=== PATIENT | female | born 1950 | race Caucasian/White ===

== ENCOUNTER 2017-09-05 00:35 | Observation (INO) | payer MEDICARE, OTHER ==
[2017-09-05 00:45] VITALS: RESP 18
--- NOTE | 2017-09-05 02:32 | ED ---
Chest Pain HPI - General Chief Complaint: Chest Pain Stated Complaint: chest pain Time Seen by Provider: 09/05/17 00:41 Source: patient, EMS Mode of arrival: EMS Limitations: no limitations - History of Present Illness Initial Comments: 67 years old female transferred from [facility] with the chest pain , she had a brief episodes of chest pain 6 times today she has no prior history of chest pain or no prior history of coronary artery disease now she was seen at the [facility] they did the basic blood work including troponin and some EKG those were unremarkable considering her age they wanted her to be come to the [facility] for further evaluation by cardiology. She does have a history of firm, hypertension, thyroid disease and seizure disorder she has not been taking the medications and she has been now seizure-free for the last 2 years on arrival she has no headaches no neck stiffness no chest pain or shortness of breath no abdominal pain no frequency urgency dysuria no symptoms of TIA or CVA - Related Data Allergies Allergy/AdvReac Type Severity Reaction Status Date / Time No Known Allergies Allergy Verified 09/05/17 00:45 Review of Systems ROS Statement: Those systems with pertinent positive or pertinent negative responses have been documented in the HPI. ROS Other: All systems not noted in ROS Statement are negative. EKG Findings - EKG Comments: EKG Findings:: EKG is normal sinus rhythm ventricular rate is 66 MS interval is 150 QRS duration is 78 QT/QTc is 2/463 review of this EKG does not reveal any ST elevation or ST depression Past Medical History Past Medical History: Hypertension, Seizure Disorder Additional Past Medical History / Comment(s): hypothyroidism History of Any Multi-Drug Resistant Organisms: None Reported Past Surgical History: No Surgical Hx Reported Past Psychological History: No Psychological Hx Reported Smoking Status: Never smoker Past Alcohol Use History: Occasional Past Drug Use History: Marijuana General Exam - General Exam Comments Initial Comments: General: The patient is awake and alert, in no distress, and does not appear acutely ill. Skin: Skin is warm and dry and no rashes or lesions are noted. Eye: Pupils are equal, round and reactive to light, extra-ocular movements are intact; there is normal conjunctiva bilaterally. Ears, nose, mouth and throat: There are moist mucous membranes and no oral lesions. Neck: The neck is supple, there is no tenderness or JVD. Cardiovascular: There is a regular rate and rhythm. No murmur, rub or gallop is appreciated. Respiratory: To auscultation bilateral, no wheezing no rhonchi no distress respiratory chin noticed Gastrointestinal: Soft, non-distended, non-tender abdomen without masses or organomegaly noted. There is no rebound or guarding present. Bowel sounds are unremarkable. Back: There is no tenderness to palpation in the midline. There is no obvious deformity. Musculoskeletal: Normal ROM, no tenderness, There is no pedal edema. There is no calf tenderness or swelling. No cords were appreciated. Neurological: CN II-XII intact, Cranial nerves III through XII are intact. There are no obvious motor or sensory deficits. Coordination appears grossly intact. Speech is normal. Psychiatric: Cooperative, appropriate mood & affect, normal judgment. Limitations: no limitations Course Vital Signs 09/05/17 09/05/17 00:38 02:30 Temperature 97.5 F L Pulse Rate 68 72 Respiratory 18 18 Rate Blood Pressure 167/81 167/79 O2 Sat by Pulse 97 95 Oximetry l she is chest pain-free, all the labs done at [facility] were reviewed there found unremarkable, deviated troponin along with EKG and both are unremarkable spoke with the Dr. Lavell Dorantes is the manager infusion doctor she be admitted to the Dr. Lavell Dorantes's service with a cardiology consult Disposition Clinical Impression: Chest pain Disposition: ADMITTED IP TO THIS HOSP Condition: Good Referrals: None,Stated [Primary Care Provider] - 1-2 days
[2017-09-05] MEDS ORDERED: NITROGLYCERIN SL TABS 0.4 MG TAB SUBLINGUAL PRN (02:36)
[2017-09-05 03:17] VITALS: BMI 30.9
[2017-09-05] MEDS ORDERED: ACETAMINOPHEN TAB 325 MG TAB PO PRN (03:24)
--- NOTE | 2017-09-05 07:46 | HP ---
HISTORY AND PHYSICAL CHIEF COMPLAINT: A 67-year-old female transferred from [facility] for chest pain, brief episode 6 times yesterday. No prior history of chest pain or heart disease. She wanted to come to [facility] to see a political worker. She has a history of hypertension, thyroid disease, seizure disorder, not taking medications, seizure-free for 2 years. No neck stiffness. No signs of seizure or TIA. ALLERGIES: Allergies are negative. REVIEW OF SYSTEM: Fourteen-point review of systems negative except for mentioned in HPI. EKG sinus rhythm. PAST MEDICAL HISTORY: Hypertension, seizure disorder, hypothyroidism. SOCIAL HISTORY: No smoker. Did use marijuana. PHYSICAL EXAM: Vital signs are stable, afebrile. CARDIOVASCULAR: S1, S2. LUNGS: Clear. GI: Soft. HEMATOLOGY: Negative Homans. PSYCH: Fair mood and affect. NEUROLOGIC: Alert and oriented x3. Cranial nerves are intact. OPHTHALMOLOGIC: Pupils equal, round, reactive to light and accommodation. Temp 97.5, pulse 68 to 72, respiratory rate 16 to 18, blood pressure 160s over 79 to 81, O2 of 95% to 97%. ASSESSMENT: 1. Atypical chest pain. 2. Hypertension. We will get Cardiology to see the patient and rule out for myocardial infarction. So far labs showed negative troponin. Cardiology is consulted. She remains on Lipitor 40 daily, Zestril 10 mg daily, aspirin 325 daily. We will do a D-dimer and check thyroid levels, etc. Please see further orders. MMODL / IJN: [id number] /
[2017-09-05 07:52] LABS: Creatine Kinase 101 U/L (30-135)
[2017-09-05 08:05] LABS: Creatine Kinase MB 1.4 ng/mL (0.0-2.4); Troponin I <0.012 ng/mL (0.000-0.034)
[2017-09-05 08:16] VITALS: TEMP 97.7
[2017-09-05 08:44] LABS: T4, Free (Free Thyroxine) 0.74 ng/dL (0.78-2.19)
[2017-09-05] MEDS ORDERED: LISINOPRIL 10 MG TAB PO SCH (09:00)
--- NOTE | 2017-09-05 09:25 | ECHOF ---
Referral Reason: MEASUREMENTS -------- HEIGHT: 175.3 cm WEIGHT: 94.8 kg BP: 148/87 RVIDd: 2.8 cm (< 3.3) IVSd: 1.2 cm (0.6 - 1.1) LVIDd: 3.9 cm (3.9 - 5.3) LVPWd: 1.2 cm (0.6 - 1.1) IVSs: 1.7 cm LVIDs: 2.5 cm LVPWs: 1.4 cm LA Diam: 3.4 cm (2.7 - 3.8) LAESV Index (A-L): 24.38 ml/m Ao Diam: 2.9 cm (2.0 - 3.7) AV Cusp: 1.9 cm (1.5 - 2.6) MV EXCURSION: 19.523 mm (> 18.000) MV EF SLOPE: 169 mm/s (70 - 150) EPSS: 0.1 cm MV E Dre: 0.87 m/s MV DecT: 237 ms MV A Dre: 0.96 m/s MV E/A Ratio: 0.90 RAP: 5.00 mmHg RVSP: 28.81 mmHg FINDINGS -------- Sinus rhythm. This was a technically good study. The left ventricular size is normal. There is borderline concentric left ventricular hypertrophy. Overall left ventricular systolic function is normal with, an EF between 55 - 60 %. The right ventricle is normal in size. Normal LA size by volume 22+/-6 ml/m2. The right atrium is normal in size. The aortic valve is trileaflet and appears structurally normal. There is trace mitral regurgitation. Mild tricuspid regurgitation present. Right ventricular systolic pressure is normal at < 35 mmHg. There is no pulmonic regurgitation present. The aortic root size is normal. Normal inferior vena cava with normal inspiratory collapse consistent with estimated right atrial pre ssure of 5 mmHg. There is no pericardial effusion. CONCLUSIONS -------- 1. Sinus rhythm. 2. This was a technically good study. 3. The left ventricular size is normal. 4. There is borderline concentric left ventricular hypertrophy. 5. Overall left ventricular systolic function is normal with, an EF between 55 - 60 %. 6. The right ventricle is normal in size. 7. Normal LA size by volume 22+/-6 ml/m2. 8. The right atrium is normal in size. 9. The aortic valve is trileaflet and appears structurally normal. 10. There is trace mitral regurgitation. 11. Mild tricuspid regurgitation present. 12. Right ventricular systolic pressure is normal at < 35 mmHg. 13. There is no pulmonic regurgitation present. 14. The aortic root size is normal. 15. Normal inferior vena cava with normal inspiratory collapse consistent with estimated right atrial pressure of 5 mmHg. 16. There is no pericardial effusion. PRODUCT MARKETING SPECIALIST: Shantel Nielsen RDCS
--- NOTE | 2017-09-05 11:07 | ECHOS ---
STRESS ECHOCARDIOGRAM DATE OF SERVICE: 09/05/2017 INDICATIONS: Chest pain. MEDICATIONS: BASELINE HEART RATE: 66 BASELINE BLOOD PRESSURE: 136/81 MAXIMUM HEART RATE: 134 MAXIMUM BLOOD PRESSURE: 183/82 85% MPHR: 130 100% MPHR: 153 METS: 5 MAXIMUM STAGE REACHED: I TOTAL EXERCISE TIME: 3 minutes and 40 seconds. CLINICAL INFORMATION: Baseline EKG shows sinus rhythm, normal axis, normal intervals. Patient exercised on Hu protocol for a total of 3 minutes and 40 seconds, achieving 5 METs, 87% of predicted maximal heart rate without chest pain or diagnostic ST-segment depression. Baseline echo shows normal left ventricular size, wall motion and systolic function. Postexercise, there is normal hyperdynamic response of all segments of myocardium noted. CONCLUSIONS: 1. Poor exercise tolerance. 2. Negative stress test by EKG criteria. 3. Negative stress echo. DOMENICA / JOSEN: [id number] /
[2017-09-05 11:43] VITALS: BP 120/78; PULSE 82
--- NOTE | 2017-09-05 11:47 | P.CRDCN ---
History of Present Illness Consult date: 09/05/17 History of present illness: Mrs. Carlos is a pleasant 67-year-old female past medical history of hypertension, hypothyroidism, seizure disorder and regular marijuana use. She is non compliant with medications and has not really followed with a dr in the last couple years. She denies history of coronary artery disease and has never seen a defect cutter for any reason. We have been asked to see her in consultation for chest pain. She states yesterday while a the library she was bending down to get a book and developed a heavy pain in the left precordial region with associated nausea. She sat down and the pain went away. No radiation , sob, palpitations, vomiting, diaphoresis or dizziness. The discomfort lasted a minute or so each time. It happened again 3 times before presenting to the hospital. The pain is reproducible on palpation. She does recall lifting a heavy mirror this week and had to put it down because was too heavy. She initially presented to [facility] and was transferred here for cardiac evaluation. EKG reveals sinus mechanism with no acute ST or T-wave abnormalities. Telemetry tracings have been unremarkable. Laboratory data reviewed from [facility]. Cardiac enzymes negative x3. She takes no daily medications other than vitamins. Review of Systems At the time my exam: CONSTITUTIONAL: Denies fever. Denies chills. EYES: Denies blurred vision. Denies vision changes. Denies eye pain. EARS, NOSE, MOUTH & THROAT: Denies headache. Denies sore throat. Denies ear pain. CARDIOVASCULAR: Denies chest pain. Denies shortness of breath. Denies orthopnea. Denies PND. Denies palpitations. RESPIRATORY: Denies cough. GASTROINTESTINAL: Denies abdominal pain. Denies diarrhea. Denies constipation. Denies nausea. Denies vomiting. MUSCULOSKELETAL: Denies myalgias. INTEGUMENTARY: Denies pruitis. Denies rash. NEUROLOGIC: Denies numbness. Denies tingling. Denies weakness. PSYCHIATRIC: Denies anxiety. Denies depression. ENDOCRINE: Denies fatigue. Denies weight change. Denies polydipsia. Denies polyurina. GENITOURINARY: Denies burning, hematuria or urgency with micturation. HEMATOLOGIC: Denies history of anemia. Denies bleeding. Past Medical History Past Medical History: Hypertension, Seizure Disorder Additional Past Medical History / Comment(s): hypothyroidism History of Any Multi-Drug Resistant Organisms: None Reported Past Surgical History: Hysterectomy Additional Past Surgical History / Comment(s): fibroid tumer Past Anesthesia/Blood Transfusion Reactions: No Reported Reaction Smoking Status: Never smoker - Past Family History Mother Family Medical History: Cancer Additional Family Medical History / Comment(s): Breast CA Father Additional Family Medical History / Comment(s): ETOH, Cirrosis Medications and Allergies Home Medications Medication Instructions Recorded Confirmed Type Calcium Carbonate [Calcium] 600 mg PO DAILY 09/05/17 09/05/17 History Cholecalciferol [Vitamin D3] 1,000 unit PO DAILY 09/05/17 09/05/17 History Cyanocobalamin (Vitamin B-12) 1,000 mcg PO DAILY 09/05/17 09/05/17 History [Vitamin B-12] Magnesium 200 mg PO DAILY 09/05/17 09/05/17 History Vitamin B Complex 1 cap PO DAILY 09/05/17 09/05/17 History Zinc 50 mg PO DAILY 09/05/17 09/05/17 History Allergies Allergy/AdvReac Type Severity Reaction Status Date / Time No Known Allergies Allergy Verified 09/05/17 09:01 Physical Exam Vitals: Vital Signs Temp Pulse Pulse Resp BP BP Pulse Ox 09/05/17 03:25 97.5 F L 64 18 148/87 96 09/05/17 02:51 97.9 F 09/05/17 02:30 72 18 167/79 95 09/05/17 00:38 97.5 F L 68 18 167/81 97 Intake and Output 09/04/17 09/05/17 09/05/17 22:59 06:59 14:59 Other: # Voids 1 Weight 95.2 kg Blood pressure 145/84 heart rate 61 afebrile maintaining oxygen saturation on room air GENERAL: This is a 67-year-old patient female in no apparent distress at the time of my examination. Obese. HEENT: Head is atraumatic, normocephalic. Pupils are equal, round. Sclerae anicteric. Conjunctivae are clear. Mucous membranes of the mouth are moist. Neck is supple. There is no jugular venous distention. No carotid bruit is heard. LUNGS: Clear to auscultation no wheezes, rales or rhonchi. No chest wall tenderness is noted on palpation or with deep breathing. HEART: Regular rate and rhythm without murmurs, rubs or gallops. S1 and S2 heard. ABDOMEN: Soft, nontender. Bowel sounds are heard. No organomegaly noted. EXTREMITIES: No evidence of peripheral edema and no calf tenderness noted. VASCULAR: Radial and dorsalis pedis pulses palpated, no evidence of clubbing. NEUROLOGIC: Patient is awake, alert and oriented x3. Results Cardiac Enzymes 09/05/17 Range/Units 00:50 Troponin I <0.012 (0.000-0.034) ng/mL Current Medications Generic Name Dose Route Start Last Admin Trade Name Freq PRN Reason Stop Dose Admin Acetaminophen 650 mg 09/05/17 03:24 Tylenol Tab PO Q4HR PRN Fever and/ or Pain Aspirin 325 mg 09/06/17 09:00 Aspirin PO DAILY ERI Atorvastatin Calcium 40 mg 09/05/17 21:00 Lipitor PO HS ERI Lisinopril 10 mg 09/05/17 09:00 Zestril PO DAILY ERI Nitroglycerin 0.4 mg 09/05/17 02:36 Nitrostat SUBLINGUAL Q5M PRN Chest Pain Intake and Output 09/04/17 09/05/17 09/05/17 22:59 06:59 14:59 Other: # Voids 1 Weight 95.2 kg Assessment and Plan Assessment: ASSESSMENT 1. Chest pain, atypical. Reproducible, possibly related to musculoskeletal strain. 2. Hypertension, not on medications secondary to non-compliance 3. Hypothyroidism, not on medication secondary to non-compliance 4. History of seizure disorder 5. Regular marijuana use, every other day PLAN Obtain 2D echocardiogram and doppler study to assess cardiac structure and function. Perform stress echocardiogram to assess for stress induced cardiac ischemia. Management of hypothroidism per primary. Agree with addition of lisinopril for blood pressure management. Cessation of marijuana recommended. If stress test is negative she is stable from a cardiac perspective. The above impression and plan of care have been discussed and directed by the signing physician. Ani Fenton, nurse practitioner, acting as scribe for signing physician.
[2017-09-05 13:39] LABS: Creatine Kinase 92 U/L (30-135)
[2017-09-05 13:41] LABS: Hemoglobin A1C 5.9 % (4.0-6.0)
[2017-09-05 13:52] LABS: Creatine Kinase MB 1.3 ng/mL (0.0-2.4); Troponin I <0.012 ng/mL (0.000-0.034)
[2017-09-05] MEDS ORDERED: ATORVASTATIN 40 MG TAB PO SCH (21:00)
[2017-09-06] MEDS ORDERED: ASPIRIN 325 MG TAB PO SCH (09:00)
--- NOTE | 2017-10-12 20:58 | DS ---
DISCHARGE SUMMARY DATE ADMITTED: 09/05/2017. DISCHARGE DATE: 09/05/2017. CONDITION: Stable. PROGNOSIS: Guarded. Ambulate as tolerated. DISCHARGE MEDICATIONS: 1. Magnesium 200 mg daily. 2. Calcium carbonate 600 mg daily. 3. Vitamin D3 1000 units daily. 4. Zinc 50 mg daily. 5. Vitamin B complex daily. 6. B12 daily. HOSPITAL COURSE: The patient was admitted with atypical chest pain. Cardiology saw the patient. A stress echo, which shows negative by EKG and negative stress echo for she was cleared by Cardiology for discharge. Echo shows sinus ejection fraction 55-60% with no signs of ischemia. Patient was discharged home in stable condition. MMODL / IJN: [id number] /
== END 2017-09-05 13:54 | disposition home or self-care (01) ==
LOC: EC 00:35 → 3OBS 02:36
PROVIDERS: ADMIT Family Medicine; ATTEND Family Medicine
DX: R07.89 Other chest pain (principal); I10 Essential (primary) hypertension; G40.909 Epilepsy, unspecified, not intractable, without status epilepticus; E03.9 Hypothyroidism, unspecified; F12.90 Cannabis use, unspecified, uncomplicated; Z91.14 Patient's other noncompliance with medication regimen; Z79.82 Long term (current) use of aspirin; Z79.899 Other long term (current) drug therapy; Z80.3 Family history of malignant neoplasm of breast; Z90.710 Acquired absence of both cervix and uterus; Z91.128 Patient's intentional underdosing of medication regimen for other reason
CPT/HCPCS: 99285; 36415; 93005; 93306; 93351; 85379; 84439; 84443; 82550; 82553; 84484; 83036; G0378

== ENCOUNTER → 2024-07-21 | Outpatient (CLI) | payer MEDICARE ==
--- NOTE | 2024-07-21 11:43 | CT ---
EXAMINATION TYPE: CT thoracic spine wo con DATE OF EXAM: 07/21/2024 11:06 AM COMPARISON: None. CLINICAL INDICATION: Female, 74 years old with history of M54.6 thoracic pain; , upper back pain TECHNIQUE: Axial images of the thoracic spine were obtained without contrast. Coronal and sagittal re formats were performed. Contrast used: mL of , none Oral contrast used: none CT DLP: 1061 mGycm, Automated exposure control for dose reduction was used. FINDINGS: Compression deformity to the T7 vertebral body with sclerosis and curvilinear sclerotic li ne. There is up to 50% height loss. No significant retropulsion. Superior endplate of T10 also demonstrates some central depression with less than 20 absent loss no s ignificant retropulsion or neural foraminal stenosis. Scattered Schmorl's nodes also present of the spine No evidence for significant spinal canal or neura l foraminal stenosis. The thoracic vertebral bodies have preserved heights and alignment. Interverte bral discs and osseous structures have normal appearance. I do not see any evidence of extradural defects nor significant spinal canal narrowing at any thoraci c vertebral body level. IMPRESSION: 1. Central depression of the T10 superior endplate. Consider further evaluation with MRI to exclude acute compression fracture. 2. Compression deformity to T7 with greater than 507% height loss this appears more chronic. 3. 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 [facility], , 07/21/2024 11:41 AM
== END | disposition home or self-care (01) ==
LOC: RADCTMAIN 10:49
PROVIDERS: ATTEND Orthopaedic Surgery
DX: M48.54XA Collapsed vertebra, not elsewhere classified, thoracic region, initial encounter for fracture (principal)
CPT/HCPCS: 72128

== ENCOUNTER 2024-10-26 07:30 | Inpatient (IN) | payer MEDICARE ==
--- NOTE | 2024-10-26 06:43 | P.HPOR ---
History of Present Illness H&P Date: 10/06/24 .D:Date: 10/06/24 : 03:35pm .T:Title: FOLLOW UP T SPINE FRACTURE, FFS Clinical Summary Melody Carlos presented today following a fall on May 17, which resulted in a thoracic fracture at T6/7. She reports persistent pain since the incident. A CT scan from July 21 confirmed the fracture, and she has been experiencing increased discomfort and a noticeable limp. We discussed treatment options, including conservative management with medication, kyphoplasty, and a more invasive procedure involving rods and screws for stabilization. Melody expressed interest in proceeding with the more comprehensive surgical option to address her ongoing pain and improve her quality of life. SURGICAL PLAN: OPEN TREATMENT T7 FRACTURE WITH T6-8 STABILIZATION AND T7 AUGMENTATION Chief Complaint Persistent thoracic pain following a fall. History Melody Carlos presents today for follow-up regarding her thoracic fracture sustained on May 17. She slipped on ice, resulting in a fracture at T6/7, confirmed by a CT scan on July 21. Melody reports ongoing pain and a limp, indicating a progression of the injury. She denies any fever, chills, shortness of breath, chest pain, perineal numbness and tingling, or bowel or bladder incontinence/retention. The patient's past social, medical, family, surgical history, as well as review of systems, have been reviewed. Please refer to the Neurosurgery History and Physical form that has been scanned into our electronic medical record system. 16 points review of systems completed and as stated in HPI, all other systems reviewed are negative. Physical Exam On examination today, Melody Carlos is alert and oriented times three, in no acute distress, appearing well nourished and well hydrated with overall alignment well maintained. Functionally, the patient demonstrates independent [id number] transition in less than 5 seconds and ambulates with a limp without assistive devices. Surgical Incision: Not applicable. TTP: Not provided. Musculoskeletal examination reveals full range of motion in all major joints without restriction or pain. 5/5 strength in all major muscle groups of bilateral upper extremities. 5/5 strength in all major muscle groups of the bilateral lower extremities. Neurologically, sensation is intact to light touch throughout C3-T1 and L2-S1 dermatomes, with 2/4 reflexes in bilateral upper and lower extremities. Henley's, clonus, Babinski, and Oanh's signs are all negative, with no tensioning signs present. Cranial nerves II-XII are grossly intact. Vascular examination demonstrates 2/4 distal pulses in all four extremities without edema, and compartments are soft and compressible. The abdomen is soft and non- tender to palpation, with normal, non-labored respirations noted. Imaging CT scan from July 21 reviewed, showing a fracture at T6/7. Assessment 1. Thoracic vertebral fracture, T6/7 - ICD: S22.080A 2. Chronic pain due to trauma - ICD: G89.21 3. Gait abnormality - ICD: R26.89 4. History of fall - ICD: Z91.81 Plan Plan of care for Melody Carlos includes proceeding with surgical intervention involving kyphoplasty with stabilization using rods and screws to address the thoracic fracture at T6/7. This approach aims to alleviate pain and prevent further deformity. Pre-operative preparations will be coordinated, and surgery is to be scheduled as soon as possible. Post-operative care will include pain management and physical therapy to aid recovery. Melody is advised to avoid heavy lifting and strenuous activities until further notice. Patient to get pre op labs, EKG and CXR done for surgery. We discussed options and risks as below. She is willing to proceed with surgery. # Medical Necessity and Surgical Risk Review ## Medical Necessity 1. Thoracic Vertebral Fracture (T6/7): The patient, Melody Carlos, sustained a thoracic fracture at the T6/7 vertebral level on May 17 due to a fall. The CT scan from July 21 confirmed this fracture. The ongoing pain and symptoms suggest persistent instability and risk of further vertebral degradation without intervention. 2. Chronic Pain: Melody experiences significant chronic pain due to the trauma, which has affected her quality of life. Conservative management has not provided adequate relief, substantiating the need for surgical intervention. 3. Functional Limitation: The patient's continued limp and difficulty with activities of daily living highlight the impact of the fracture on her functiona lity, further justifying the surgical approach. ## Surgical Risk Review 1. Surgical Procedure: The proposed intervention includes kyphoplasty with stabilization using rods and screws, classified as minimally invasive with the expected advantages of rapid pain relief and structural stabilization. 2. Risks: As with any surgical procedure, there are inherent risks including potential for infection, anesthesia-related complications, and post-operative pain. The procedure's minimally invasive nature aims to mitigate these risks. 3. Benefits: The surgical approach aims to correct the vertebral deformity, alleviate pain, and prevent further progression of the condition, facilitating an improved quality of life for the patient. 4. Patient Suitability: Melody has expressed willingness to undergo the procedure, understanding the potential benefits and risks involved, and seeking relief from current symptoms. Follow Up POST OP Plan at Next Visit Review surgical outcomes and recovery progress. Patient Education Medications Reviewed: YES In our visit today Ms. Carlos and I have had a chance to go over my understanding of the patient's current condition, the natural course history without intervention and various interventional options. Questions were invited and answered, and the patient wishes to proceed as outlined above. I will be sure to keep you updated after Ms. Carlos returns here for further follow-up. Thank you again for your referral. Please do not hesitate to contact me if you have any further questions. Signed and authenticated by: Sedrick Vaughn DO [facility] [place] [address] This message is confidential, intended only for the named recipient(s) and may contain information that is privileged or exempt from disclosure under applicable law. If you are not the intended recipient(s), you are notified that the dissemination, distribution or copying of this information is strictly prohibited. If you received this message in error, please notify the sender then delete this message. # SIGNED BY Sedrick Vaughn (GOO)10/06/2024 03:38PM Past Medical History Past Medical History: Hypertension, Musculoskeletal Disorder, Seizure Disorder, Thyroid Disorder Additional Past Medical History / Comment(s): hypothyroidism-no longer taking med., fell down some stairs in May, fx. vertebrae in back, used to take BP medication, no longer needed, past hx. couple seizures in late 80's-none since then, unsure of cause History of Any Multi-Drug Resistant Organisms: None Reported Past Surgical History: Hysterectomy Additional Past Surgical History / Comment(s): fibroid tumer Past Anesthesia/Blood Transfusion Reactions: No Reported Reaction Additional Past Anesthesia/Blood Transfusion Reaction / Comment(s): no transfusion hx. Smoking Status: Never smoker - Past Family History Mother Family Medical History: Cancer Additional Family Medical History / Comment(s): Breast CA Father Additional Family Medical History / Comment(s): ETOH, Cirrosis Medications and Allergies Home Medications Medication Instructions Recorded Confirmed Type Calcium Carbonate [Calcium] 600 mg PO DAILY 09/05/17 10/21/24 History Acetaminophen [Tylenol] 325 - 650 mg PO Q4-6H PRN 10/21/24 10/21/24 History Multivitamins, Thera [Multivitamin 1 tab PO DAILY 10/21/24 10/21/24 History (formulary)] Allergies Allergy/AdvReac Type Severity Reaction Status Date / Time No Known Allergies Allergy Verified 10/21/24 10:28 Physical Examination Osteopathic Statement: *. No significant issues noted on an osteopathic structural exam other than those noted in the History and Physical/Consult.
[~2024-10-26 07:30] MED LIST: LIDOCAINE 1% (10MG/ML) FOR IV START INTRADERMA PRN; ONDANSETRON 4 MG/2 ML VIAL IVP PRN; TRANEXAMIC 1,000 MG/100ML-NACL 1,000 MG in SALINE 1 100ML.BAG IVPB PRN
[2024-10-26] MEDS: LACTATED RINGERS 1,000 ML IV ONE ×3 (12:56→16:07)
[2024-10-26] MEDS: IV FLUID CONTINUATION 1,000 ML IV ONE ×2 (12:56)
[2024-10-26] MEDS: ACETAMINOPHEN TAB 500 MG TAB PO PRN (13:12)
[2024-10-26] MEDS: LACTATED RINGERS 1,000 ML IV SCH (13:12)
[2024-10-26] MEDS: GABAPENTIN 300 MG CAP PO PRN (13:12)
[2024-10-26] MEDS: DEXAMETHASONE SOD PHOSPHATE 4 MG/ML 1 ML VIAL IV ONE (13:14)
[2024-10-26] MEDS: MIDAZOLAM 2 MG/2 ML VIAL IV STA (13:30)
[2024-10-26] MEDS: ONDANSETRON 4 MG/2 ML VIAL IVP ONE (13:41)
--- NOTE | 2024-10-26 14:12 | P.ANPRN ---
Procedure Note - Anesthesia - Invasive Line Left Arterial Line Date of Procedure: 10/26/24 Time of Procedure: 13:02 Location of Patient: PreOp Arterial Line Location: Radial Ultrasound Used: No Narrative: Invasive line placement per sterile protocol utilized.
[2024-10-26] MEDS ORDERED: ePHEDrine 50 MG/ML 1 ML VIAL ONE (15:22)
[2024-10-26] MEDS ORDERED: SUCCINYLCHOLINE CHLORIDE 200 MG/10 ML VIAL IV ONE (15:22)
[2024-10-26] MEDS ORDERED: TRANEXAMIC 1,000 MG/100ML-NACL PREMIX BAG ONE (15:22)
[2024-10-26] MEDS ORDERED: PROPOFOL 10 MG/ML 20 ML VIAL IV ONE (15:22)
[2024-10-26] MEDS ORDERED: MIDAZOLAM 2 MG/2 ML VIAL ONE (15:22)
[2024-10-26] MEDS ORDERED: LIDOCAINE 1% INJ 10MG/ML (20 ML MDV) ONE (15:22)
[2024-10-26] MEDS ORDERED: PHENYLEPHRINE-0.9% NACL SYG 1,000 MCG/10 ML SYRINGE ONE (15:22)
[2024-10-26] MEDS ORDERED: fentaNYL (PF) 50 MCG/ML 2 ML AMP ONE (15:22)
[2024-10-26] MEDS: ceFAZolin 2 GM in DEXTROSE 5% IN WATER 50 ML IVPB PRN (15:32)
[2024-10-26] MEDS: LIDOCAINE 2%-EPI 1:100,000 20 ML VIAL SQ ONE (16:11)
[2024-10-26] MEDS: BUPIVACAINE (PF) 0.5% 30 ML VIAL SQ ONE (16:11)
[2024-10-26] MEDS: IOPAMIDOL M200 10 ML VIAL MISCELLANE ONE (16:11)
[2024-10-26] MEDS ORDERED: MAGNESIUM HYDROXIDE 2,400 MG/30 ML CUP PO PRN (17:26)
[2024-10-26] MEDS ORDERED: ONDANSETRON 4 MG/2 ML VIAL IVP PRN (17:26)
[2024-10-26] MEDS ORDERED: HYDROcodone/APAP 5-325MG 1 EACH TAB PO PRN (17:26)
[2024-10-26] MEDS ORDERED: SENNOSIDES-DOCUSATE SODIUM 1 EACH TAB PO PRN (17:26)
[2024-10-26] MEDS: HYDROmorphone 0.5 MG/0.5 ML SYRINGE IVP PRN ×2 (17:51→19:42)
[2024-10-26] MEDS: CYCLOBENZAPRINE 5 MG TAB PO PRN (19:43)
[2024-10-26] MEDS: ACETAMINOPHEN TAB 325 MG TAB PO SCH (19:44)
[2024-10-26] MEDS: droPERidol 2.5 MG/ML VIAL IVP ONE (19:44)
[2024-10-26] MEDS ORDERED: ISOSORBIDE MONONITRATE ER 30 MG TAB.ER.24H PO SCH (19:45)
[2024-10-26 20:38] LABS: Glucose,Whole Blood 95 mg/dL (70-110)
[2024-10-26] MEDS ORDERED: hydrALAZINE HCL 10 MG TAB PO PRN (20:55)
--- NOTE | 2024-10-26 20:57 | P.CONS ---
History of Present Illness - Reason for Consult Consult date: 10/26/24 Medical management - Chief Complaint Medical management - History of Present Illness This is a 74-year-old female patient with a past medical history of essential hypertension, hypothyroidism, seizure disorder and regular marijuana use . Patient admitted under Ortho for management of T6/T7 thoracic fracture. She presented back in May 2024 after a mechanical fall which resulted in thoracic fracture at T6/7. She had a CT which confirmed the fracture. She is status post surgical intervention involving kyphoplasty with stabilization using rods and screws to address the thoracic fracture at T6/7. No complications postop Past medical history : Hypertension, hypothyroidism, seizure disorder Past surgical history : Hysterectomy Social history : No tobacco use, no alcohol use and daily marijuana use Review of system : Negative except for mentioned HPI Physical exam : General: nontoxic, no distress, appears at stated age Derm: warm, dry, intact Head: atraumatic, normocephalic, symmetric Eyes: EOMI, anicteric sclera Mouth: no lip lesion, mucus membranes moist Cardiovascular: S1 S2 reg, no murmur, rubs, or gallops Lungs: CTA bilateral, no rales, no accessory muscle use Abdominal: soft, non-tender to palpataion, no appreciable organomegaly Extremities: no gross muscle atrophy, no edema, no contractures Neuro: Alert, Oriented, Psych: well appearing, appropriate affect Assessment and plan : - Thoracic spine fracture status post surgery : Managed by Ortho Patient denies having any past medical history. Her chart reports that she has hypothyroidism, essential hypertension and seizures. She denies having any seizures and her blood pressure is slightly elevated . will add oral hydralazine PRN and TSH . Thank you for the consult Time spent : 45 min Past Medical History Past Medical History: Hypertension, Musculoskeletal Disorder, Seizure Disorder, Thyroid Disorder Additional Past Medical History / Comment(s): hypothyroidism-no longer taking med., fell down some stairs in May, fx. vertebrae in back, used to take BP medication, no longer needed, past hx. couple seizures in late s-none since then, unsure of cause History of Any Multi-Drug Resistant Organisms: None Reported Past Surgical History: Hysterectomy Additional Past Surgical History / Comment(s): fibroid tumer Past Anesthesia/Blood Transfusion Reactions: No Reported Reaction Additional Past Anesthesia/Blood Transfusion Reaction / Comm: no transfusion hx. Smoking Status: Never smoker - Past Family History Mother Family Medical History: Cancer Additional Family Medical History / Comment(s): Breast CA Father Additional Family Medical History / Comment(s): ETOH, Cirrosis Medications and Allergies Home Medications Medication Instructions Recorded Confirmed Type Calcium Carbonate [Calcium] 600 mg PO DAILY 09/05/17 10/26/24 History Acetaminophen [Tylenol] 325 - 650 mg PO Q4-6H PRN 10/21/24 10/26/24 History Multivitamins, Thera [Multivitamin 1 tab PO DAILY 10/21/24 10/26/24 History (formulary)] Allergies Allergy/AdvReac Type Severity Reaction Status Date / Time No Known Allergies Allergy Verified 10/21/24 10:28 Physical Exam Vitals: Vital Signs Temp Pulse Resp BP Pulse Ox 10/26/24 18:30 79 16 145/88 96 10/26/24 18:15 79 16 149/50 93 L 10/26/24 18:00 84 16 160/93 95 10/26/24 17:45 86 16 163/94 100 10/26/24 17:35 97 F L 95 16 180/96 100 10/26/24 13:45 65 16 120/74 97 10/26/24 12:49 96.9 F L 89 16 139/81 98 Intake and Output 10/26/24 10/26/24 10/26/24 06:59 14:59 22:59 Intake Total 900 1600 Output Total 300 Balance 900 1300 Intake: IV 900 1600 Output: Urine 150 Estimated Blood Loss 150 Other: Weight 82.5 kg
[2024-10-27] MEDS: ceFAZolin 2 GM in DEXTROSE 5% IN WATER 50 ML IVPB SCH (00:44)
[2024-10-27 01:11] LABS: Basophils # (A) 0.02 10*3/uL (0.00-0.10); Basophils % (A) 0.2 %; Eosinophils # (A) 0.08 10*3/uL (0.04-0.35); Eosinophils % (A) 0.9 %; HCT 35.5 % (37.2-46.3); HGB 11.8 g/dL (12.0-15.0); Lymphocytes # (A) 1.44 10*3/uL (0.90-5.00); Lymphocytes % (A) 16.8 %; MCH 30.7 pg (27.0-32.0); MCHC 33.2 g/dL (32.0-37.0); MCV 92.4 fL (80.0-97.0); Mean Platelet Volume 9.5 fL (9.5-12.2); Monocytes # (A) 0.69 10*3/uL (0.20-1.00); Neutrophils # (A) 6.31 10*3/uL (1.80-7.70); Neutrophils % (A) 73.6 %; Platelet Count 184 10*3/uL (140-440); RBC 3.84 10*6/uL (4.10-5.20); RDW 15.6 % (11.5-14.5); WBC 8.58 10*3/uL (4.50-10.00)
--- NOTE | 2024-10-27 03:02 | CT ---
EXAM: CT Thoracic Spine Without Intravenous Contrast CLINICAL HISTORY: ITS.REASON CT Reason: s/p T6-T8 ORIF T7 kyphoplasty TECHNIQUE: Axial computed tomography images of the thoracic spine without intravenous contrast. CTDI is 17 mGy and DLP is 706.8 mGy-cm. This CT exam was performed using one or more of the following dose reduction techniques: automated exposure control, adjustment of the mA and/or kV according to patient size, and/or use of iterative reconstruction technique. COMPARISON: 07/21/2024 FINDINGS: Status post cement placement and posterior fusion T6 through T8. Expected postop changes in the posterior paraspinal soft tissues. Unchanged wedging deformities T10 and T11. IMPRESSION: Status post cement placement and posterior fusion T6 through T8. Expected postop changes in the posterior paraspinal soft tissues. Unchanged wedging deformities T10 and T11.
[2024-10-27] MEDS: HYDROmorphone 1 MG/ML 1 ML SYRINGE IVP PRN (06:09)
[2024-10-27 06:13] LABS: Glucose,Whole Blood 84 mg/dL (70-110)
[2024-10-27] MEDS ORDERED: carvediloL 12.5 MG TAB PO SCH (07:30)
[2024-10-27] MEDS: HYDROcodone/APAP 10-325MG 1 EACH TAB PO PRN (08:12)
--- NOTE | 2024-10-27 08:18 | FL ---
EXAMINATION TYPE: FL guidance operating room, XR thoracic spine 2V DATE OF EXAM: 10/26/2024 5:35 PM COMPARISON: Pre Operative Images if available both CT/MRI or plain film CLINICAL INDICATION: Female, 74 years old with history of PLDF; TECHNIQUE: FL guidance operating room, XR thoracic spine 2V, multiple fluoroscopic images provided fo r procedure. DAP: 537.22 mGym2 Gycm2 uGym2 cGycm2 or equivalent. FINDINGS: Fluoroscopic images during internal fixation demonstrate hardware in appropriate position. Hardware a ppears intact. No immediate complication identified. IMPRESSION: 1. No evidence for intraoperative complication. 2. Please see the operative/procedural note for further details. [facility], , 10/27/2024 8:15 AM
--- NOTE | 2024-10-27 08:21 | P.PN ---
Subjective Progress Note Date: 10/27/24 Principal diagnosis: T7 vertebral compression fracture Patient was seen at bedside this morning lying in the semi-, position with Means in place and postoperative dressing in place over thoracic spine. Patient says she is having pain located in the mid back and describes it as burning in nature. Patient denies any radiation of pain down the legs. She says she is looking forward to working with therapy later this morning and normally ambulates with a walker or cane at home. Patient denies any other issues at this time. Patient states she has not had a bowel movement yet. She says she has not had anything to eat since surgery. Objective - Vital Signs Vital signs: Vital Signs Temp 97.8 F 10/27/24 07:22 Pulse 83 10/27/24 07:22 Resp 15 10/27/24 07:22 BP 101/60 10/27/24 07:22 Pulse Ox 91 L 10/27/24 07:22 FiO2 Intake & Output 10/26/24 10/27/24 10/27/24 18:59 06:59 18:59 Intake Total 2500 Output Total 300 425 Balance 2200 -425 Weight 82.5 kg 82.5 kg Intake: IV 2500 Output: Urine 150 425 Uretheral (Means) 425 Estimated Blood Loss 150 Other: Voiding Method Indwelling Catheter - Exam Postoperative surgical dressing is clean, dry, intact over thoracic spine. Sensory exam light touch from C3-T1 and L1-S1. There is moderate tenderness to patient over the thoracic spine near incision on exam. Nontender throughout rest of exam. Patient does have full range of motion throughout bilateral upper and lower extremities on exam. 5/5 in all major motor groups in bilateral upper extremities. 4/5 in all major motor groups in bilateral lower extremities. Radial pulse intact, 2+ bilaterally. Cap refill under 3 seconds in digits of upper extremities. Negative Oanh bilaterally. Negative clonus bilaterally. Negative Cody bilaterally. - Labs CBC & Chem 7: 10/27/24 00:26 Labs: Abnormal Lab Results - Last 24 Hours (Table) 10/27/24 10/27/24 Range/Units 00:26 00:26 RBC 3.84 L (4.10-5.20) 10*6/uL Hgb 11.8 L (12.0-15.0) g/dL Hct 35.5 L (37.2-46.3) % RDW 15.6 H (11.5-14.5) % TSH 11.500 H (0.465-4.680) mIU/L Assessment and Plan Assessment: 1. T7 vertebral compression fracture -Postop day 1 status post OPEN TREATMENT T7 FRACTURE WITH T6-8 STABILIZATION AND T7 AUGMENTATION Plan: 1. T7 vertebral compression fracture -surgery was performed yesterday, 10/26/2024 OPEN TREATMENT T7 FRACTURE WITH T6-8 STABILIZATION AND T7 AUGMENTATION. Patient stable bedside this morning with dressing in place over thoracic spine. Means is currently in place. Continue with pain medication as needed. Patient to work with PT/OT later this morning. Nursing to remove Means if patient does well with therapy. Change dressing as needed. Plan for discharge tomorrow versus Friday. 2. Appreciate medical management 3. Pain management - norco; flexeril; gabapentin, tylenol 4. GI prophylaxis - senna 5. DVT prophylaxis -mechanical 6. PT/OT -weightbearing as tolerated with walker and assistance as needed 7. Encourage incentive spirometer use 8. Discharge planning -plan for discharge tomorrow versus Friday Time with Patient: Less than 30
[2024-10-27 08:23] LABS: BUN/Creat Ratio 23.14 Ratio (12.00-20.00); Blood Urea Nitrogen 16.2 mg/dL (9.0-27.0); Calcium 8.6 mg/dL (8.7-10.3); Carbon Dioxide 23.8 mmol/L (21.6-31.8); Chloride 106 mmol/L (96-109); Glucose 97 mg/dL (70-110); Potassium 4.3 mmol/L (3.5-5.5); Sodium 138 mmol/L (135-145)
[2024-10-27 11:14] LABS: Glucose,Whole Blood 90 mg/dL (70-110)
[2024-10-27 11:19] LABS: T4, Free (Free Thyroxine) 1.15 ng/dL (0.78-2.19)
[2024-10-27] MEDS: MULTIVITAMINS, THERA 1 EACH TAB PO SCH (12:12)
--- NOTE | 2024-10-27 12:23 | P.PN ---
Subjective Progress Note Date: 10/27/24 Hospital course: Patient is a very pleasant 74-year-old female with a past medical history of hypothyroidism, hypertension, seizure disorder, regular cannabinoid use, and recent fall 05/17/2024 that resulted in thoracic fractures at T6-T7.. She is currently admitted under orthospine surgery team status post kyphoplasty with stabilization rods and screws at T6-T8. Surgical procedure was completed on 10/10. We were then consulted for medical management throughout hospitalization. Physical exam: Patient seen and fully evaluated at bedside this morning. She just completed ambulating with physical therapy and Means catheter was removed. She reports that she felt she did well with physical therapy but feels much weaker than she expected. She currently reports back pain is controlled. She is laying right lateral recumbent in her bed visiting with her at bedside. Surgical dressing to thoracic region of back is clean, dry, and intact with no signs of bleedthrough or drainage. Patient denies urinating since removal of Means catheter but states it was just removed prior to my entrance into room. She denies having any numbness/tingling/weakness and denies experiencing any hea dache, lightheadedness, dizziness, chest pain, or shortness of breath. Vital signs reviewed and stable. General: Nontoxic, no distress and appears stated age. Derm: Skin warm and dry, normal coloration for ethnicity. Head: Atraumatic, normocephalic and symmetric. Eyes: EOM's intact, no lid lag, and anicteric sclera Mouth: no lip lesions, mucus membranes moist Cardiovascular: regular rate and rhythm with normal S1S2, no murmur, positive posterior tibial pulses bilaterally, and cap refill < 2 seconds. Lungs: Respirations even, regular, and unlabored on room air. Lungs CTA bilaterally, no rhonchi, no rales, no wheezing, and no accessory muscle usage. Abdominal: soft, nontender to palpation, no guarding, no appreciable organomegaly Ext: ROM intact. No gross muscle atrophy, no edema, no contractures Neuro: Speech clear, face symmetrical and CN II-XII grossly intact with no noted focal neuro deficits Psych: Alert and oriented to person, place, time, and situation. Appropriate and pleasant affect. Assessment and Plan of Care: Status post thoracic kyphoplasty with gagandeep/screw placement. Management per primary admitting orthospine surgery team including DVT prophylaxis, pain management, wound/dressing management, and PT/OT. Patient started on MiraLAX 17 g nightly to prevent opioid-induced/postsurgical constipation. DVT prophylaxis currently with SHANNEN monge and Anamaria. Hypertension Hypothyroidism Seizure disorder Cannabinoid use disorder Patient reports she has been taken off of all of her medications at home years ago. TSH is elevated at 11.500 with a normal free T4 of 1.15. Recommend repeat thyroid panel in 6 weeks and outpatient follow-up with her PCP. Patient has documented history of hypertension but blood pressures currently soft at 101/60 with heart rate of 83. Will continue to monitor. Recommend cessation of marijuana. Data and imaging reviewed: Vital signs reviewed. Blood pressure 101/60, heart rate 83, respiratory rate 15, temp 97.8 F, and SpO2 of 91% on room air. Postoperative labs reviewed. CBC showing stable normocytic anemia with he moglobin of 11.8. BMP unremarkable. Blood glucose 97. TSH 11.500 and free T41.15. Thank you for allowing us to participate in the care of this pleasant patient. Do not hesitate to contact us with questions. Someone can be reached from the [facility] hospitalist group all hours of the day at [phone] or via AlertMe. Patient was seen independently by Nurse Pracitioner. This document was prepared using [employer]ified[employer] dictation software. Please allow for errors in architectural job captain, while rare they do occur. Primitivo Tatum NP rendered care for this patient independently, reviewed the fi ndings and plan as documented in the note above and agree with plan. I did not physically speak with or examine the patient on this date. Objective - Vital Signs Vital signs: Vital Signs Temp 97.8 F 10/27/24 07:22 Pulse 83 10/27/24 07:22 Resp 15 10/27/24 07:22 BP 101/60 10/27/24 07:22 Pulse Ox 91 L 10/27/24 07:22 FiO2 Intake & Output 10/26/24 10/27/24 10/27/24 18:59 06:59 18:59 Intake Total 2500 Output Total 300 425 Balance 2200 -425 Weight 82.5 kg 82.5 kg Intake: IV 2500 Output: Urine 150 425 Uretheral (Means) 425 Estimated Blood Loss 150 Other: Voiding Method Indwelling Catheter Indwelling Catheter - Labs CBC & Chem 7: 10/27/24 00:26 10/27/24 00:26 Labs: Abnormal Lab Results - Last 24 Hours (Table) 10/27/24 10/27/24 10/27/24 Range/Units 00: 00:26 00:26 RBC 3.84 L (4.10-5.20) 10*6/uL Hgb 11.8 L (12.0-15.0) g/dL Hct 35.5 L (37.2-46.3) % RDW 15.6 H (11.5-14.5) % BUN/Creatinine Ratio 23.14 H (12.00-20.00) Ratio Calcium 8.6 L (8.7-10.3) mg/dL TSH 11.500 H (0.465-4.680) mIU/L
[2024-10-27] MEDS: polyethylene glycoL 3350 17 GM POWD.PACK PO SCH (21:19)
[2024-10-28 08:40] LABS: BUN/Creat Ratio 13.29 Ratio (12.00-20.00); Blood Urea Nitrogen 9.3 mg/dL (9.0-27.0); Calcium 8.8 mg/dL (8.7-10.3); Carbon Dioxide 23.7 mmol/L (21.6-31.8); Chloride 105 mmol/L (96-109); Glucose 106 mg/dL (70-110); Potassium 4.2 mmol/L (3.5-5.5); Sodium 138 mmol/L (135-145)
[2024-10-28 08:51] LABS: HCT 37.1 % (37.2-46.3); HGB 11.8 g/dL (12.0-15.0); MCH 29.9 pg (27.0-32.0); MCHC 31.8 g/dL (32.0-37.0); MCV 93.9 FL (80.0-97.0); Mean Platelet Volume 11.1 FL (9.5-12.2); NRBC Per 100 WBC 0 X 10*3/uL (0.00-0.01); Platelet Count 179 X 10*3/uL (140-440); RBC 3.95 X 10*6/uL (4.10-5.20); RDW 15.4 % (11.5-14.5); WBC 7.69 X 10*3/uL (4.50-10.00)
--- NOTE | 2024-10-28 09:34 | P.PN ---
Subjective Progress Note Date: 10/28/24 Principal diagnosis: T7 vertebral compression fracture Patient seen and examined this morning. Patient is sitting up in chair at bedside. Significant other is present in the room. Patient states that her pain was not controlled throughout the night. Discussed with patient and medications will be adjusted. Surgical incisions to the thoracic spine, edges are all well-approximated with selvin intact. No active drainage. New dressing applied. Patient states she has been ambulatory with walker in room. Informed patient that physical therapy will begin to work with her today. Patient is looking forward to possibly going home tomorrow morning 10/29/2024. Objective - Vital Signs Vital signs: Vital Signs Temp 99.6 F 10/28/24 07:13 Pulse 101 H 10/28/24 07:13 Resp 18 10/28/24 07:13 BP 133/90 10/28/24 07:13 Pulse Ox 96 10/28/24 07:13 FiO2 Intake & Output 10/27/24 10/28/24 10/28/24 18:59 06:59 18:59 Other: Voiding Method Indwelling Catheter Toilet Toilet # Voids 1 1 - Exam Physical Examination General: The patient is awake and alert, in no acute distress. Skin: Skin is warm and dry with no obvious rashes or lesions. Surgical incisions to the thoracic spine, all edges are well-approximated with selvin i ntact. No active drainage. New dressing applied. Eye: Pupils are equal, round and reactive to light, extra-ocular movements are intact; there is normal conjunctiva bilaterally. Neck: The neck is supple, there is no tenderness and ROM intact. Respiratory: Respirations are non-labored. Gastrointestinal: Soft, non-distended, non-tender abdomen. Back: There is no tenderness to palpation in the midline, paralumbar, parathoracic or buttocks region. There is no obvious deformity. Musculoskeletal: ROM limited secondary to pain and stiffness from surgical procedure. Right: Shoulder abduction 5/5, elbow flexors 5/5, wrist dorsiflexors 5/5. finger abductor 5/5, meteorologist liaison 5/5, hip flexor 5/5, knee flexor 5/5, ankle dorsiflexor 5/5, ankle plantarflexion 5/5 and extensor kovacs llucis 5/5 Left: Shoulder abduction 5/5, elbow flexors 5/5, wrist dorsiflexors 5/5. finger abductor 5/5, meteorologist liaison 5/5, hip flexor 5/5, knee flexor 5/5, ankle dorsiflexor 5/5, ankle plantarflexion 5/5 and extensor hallucis 5/5. Neurological: CN 2-12 intact. There are no obvious motor or sensory deficits. Movement and coordination equal and intact. Sensory exam to light touch intact C5-T1 and intact from L2-S1. Reflexes 2/4 in bilateral upper and lower extremities. Negative Hoffmans, babinski, and clonus signs. Psychiatric: Cooperative, appropriate mood & affect, normal judgment. - Labs CBC & Chem 7: 10/28/24 03:17 10/28/24 03:17 Labs: Abnormal Lab Results - Last 24 Hours (Table) 10/28/24 Range/Units 03:17 RBC 3.95 L (4.10-5.20) X 10*6/uL Hgb 11.8 L (12.0-15.0) g/dL Hct 37.1 L (37.2-46.3) % MCHC 31.8 L (32.0-37.0) g/dL RDW 15.4 H (11.5-14.5) % Assessment and Plan Assessment: Postop day 2: OPEN TREATMENT T7 FRACTURE WITH T6-8 STABILIZATION AND T7 AUGMENTATION Plan: -Appreciate webmethods consultant and team management. -Activity: Ambulate QID, OOB all meals, up and about, limit lifting bending twisting to less than 5 lbs. Use walker or cane if needed for stability. -Daily PT/OT, increase ambulation strength and balance. -Pain control: Adequate at this time -Meds: reviewed -GI ppx: senna, Miralax -DVT PPX: Naproxen 500mg BID -Hygiene: Maintain incision clean and dry. May change dressing as needed, please document in notes if performed. -Encourage IS 10x/hr -Dispo: Anticipate discharge home tomorrow morning 10/29/24. *I reviewed and discussed this case with my attending Dr. Vaughn, whom has reviewed this chart and films and is in agreement with assessment and plan of care as outlined above. I have personally seen and examined the patient, performed the documentation and the assessment and plan as written. Number of minutes spent on the visit: 20m.
[2024-10-28] MEDS: NAPROXEN 250 MG TAB PO SCH (10:30)
[2024-10-28] MEDS: CYCLOBENZAPRINE 5 MG TAB PO SCH (10:31)
[2024-10-28] MEDS ORDERED: LORazepam 0.5 MG TAB PO PRN (10:36)
--- NOTE | 2024-10-28 11:33 | P.OP ---
Date of Procedure: 10/26/24 Preoperative Diagnosis: 1. T7 BURST COMPRESSION FRACTURE 2. KYPHOSIS 3. MID BACK PAIN 4. DEBILITY Postoperative Diagnosis: 1. T7 BURST COMPRESSION FRACTURE 2. KYPHOSIS 3. MID BACK PAIN 4. DEBILITY Procedure(s) Performed: 1. OPEN TREATMENT T7 FRACTURE 2. T6-T8 POSTEROLATERAL INSTRUMENTED FUSION 3. T6-T8 STABILIZATION, SEGMENTAL INSTRUMENTATION 4. T7 SPINE SUNITHA PLACEMENT, INTRAVERTEBRAL BODY AUGMENTATION, WITH CEMENT AGUMENTATION 5. PLACEMENT OF BIOMECHANICAL DEVICE SPINE SUNITHA x2 USE OF IONM Implants: GERA EVERST RODS AND SCREWS GERA CEMENT GERA SPINE SUNITHA, SMALL X2 ALLOGRAFT. Anesthesia: GETA Surgeon: Sedrick Vaughn Greenskeeper Head #1: Adriano Camilo (was present and assisted with all aspects of the from position to dressing placement. ) Estimated Blood Loss (ml): 100 IV fluids (ml): 1,000 Urine output (ml): 250 Pathology: none sent Condition: stable Disposition: PACU Indications for Procedure: Melody Carlos presented today following a fall on May 17, which resulted in a thoracic fracture at T6/7. She reports persistent pain since the incident. A CT scan from July 21 confirmed the fracture, and she has been experiencing increased discomfort and a noticeable limp. We discussed treatment options, including conservative management with medication, kyphoplasty, and a more invasive procedure involving rods and screws for stabilization. Melody expressed interest in proceeding with the more comprehensive surgical option to address her ongoing pain and improve her quality of life. SURGICAL PLAN: OPEN TREATMENT T7 FRACTURE WITH T6-8 STABILIZATION AND T7 AUGMENTATION Description of Procedure: T7 OPEN TREATMENT FRACTURE WITH T6-8 STABILIZATION FUSION, SPINE SUNITHA PLACEMENT Upon arrival in the preoperative area, the patient was thoroughly examined and all standard protocols were meticulously followed. The risks and benefits of the upcoming surgery were discussed in detail, ensuring informed consent was obtained. The patient was made aware of the various risks associated with the procedure, including bleeding, infection, potential damage to surrounding tissues, and the possibility of needing a reoperation. Additionally, the risks related to anesthesia, which could extend to fatal outcomes, were also communicated and documented in the risk review. Understanding and accepting these risks, the patient agreed to proceed with the surgery. Prior to the operation, the patient received a weight-based dose of antibiotics, specifically 2 grams of Ancef. The anesthesia team evaluated the patient and deemed them fit for the surgical procedure. With the patients consent, the surgical site was marked, indicating their readiness to undergo the operation. The patient was then transferred to the operative suite under the care of the Department of Anesthesia. There, they were gently put to sleep, and general endotracheal anesthesia was successfully administered without any complications. The nursing staff placed a Means catheter atraumatically, and the patient was carefully positioned on a prone Eder table. Special care was taken to pad all bony prominences, including the wrists, elbows, axilla, chest, hips, thighs, and feet, with extra attention given to the genitalia to ensure comfort and safety. The patients arms were positioned tucked at her side thumbs down and well padded. The surgical team then proceeded to expose the patients thoracic spine. The incision site was outlined with 1010s, cleaned with standard alcohol, and allowed to dry. The C-arm was utilized to biomark the patient and confirm the level for the incision, which was then marked on the skin. An operative briefing was conducted with all teams present, reaching a unanimous agreement to move forward with the procedure. The patient was prepped and draped in a sterile fashion, and a timeout was taken to ensure all parties were in agreement with the planned procedure. A midline skin incision was made over the marked area and dissection taken down over the SP for placement of the In Ovo Navigation SP tracker. This was secured to the SP of T8. We then obtained a 3D Zhiem spin and confirmed its accuracy. Once this was completed screws were placed bilaterally from T6-T8 using navigated Jamshidi and wires. Jamshidi was passed and wire placed in its void. Screw was then placed over the wire using lateral fluroscopic imaging. Once screws werein place, they were viewed on AP and LAT imaging and they were in good position. We then proceeded to spine sunitha placement and fracture reduction. Wires had been placed here using S-BONNIE as well over these wires we placed the drill then the cannula and then the trial for spine sunitha. This was done bilaterally. Once in position and confirmed on AP and LAT the spine jacks were placed and expanded sequentially under lateral imaging. Once good fracture reduction was obtained and good VB height these were cemented in place. Screws were then cemented into position under lateral imaging as well. There was a good fill of all the cement. No extravasation and the patient remained stable the entire time. We then proceeded to measure and place rods subfacially through tabs and tulip heads. Once in place the set screws were placed and rods reduced and this reduced the fracture and alignment further. Set screws were then finally tightened and torqued. PL gutters were placed graft. Final imaging confirmed good placement of hardware, good reduction of fracture and alignment and stabilization. The wounds were copiously irrigated with abx saline and NSS. We then proceeded to closure. The closure was performed in layers, starting with the deep fascia, which was closed with #1 PDS in a [id number] fashion. The deep subcutaneous tissue was closed with 0 Vicryl, the superficial subcutaneous tissue with 2-0 Vicryl, and the skin with selvin. The wound edges were well approximated, and the area was dressed sterilely with Adaptic, 4x4 ABDs, and foam tape. Finally, the patient was gently transferred back to their hospital bed, ensuring the drain maintained suction and was well-positioned. The patient was then awakened and extubated by the anesthesia department, having tolerated the procedure exceptionally well. They were subsequently transferred to the postoperative care unit in a stable condition, marking the conclusion of a meticulously conducted surgical procedure.
[2024-10-28] MEDS: HYDROcodone/APAP 10-325MG 1 EACH TAB PO PRN (12:18)
--- NOTE | 2024-10-28 16:09 | P.PN ---
Subjective Progress Note Date: 10/28/24 Hospital course: Patient is a very pleasant 74-year-old female with a past medical history of hypothyroidism, hypertension, seizure disorder, regular cannabinoid use, and recent fall 05/17/2024 that resulted in thoracic fractures at T6-T7.. She is currently admitted under orthospine surgery team status post kyphoplasty with stabilization rods and screws at T6-T8. Surgical procedure was completed on 10/10. We were then consulted for medical management throughout hospitalization. Physical exam: Patient seen and fully evaluated at bedside this morning. She was resting in bed and visiting with her son at bedside. She states that she has been feeling very anxious regarding staying in the hospital states she had an extremely difficult night not only secondary to uncontrolled surgical back pain but severe anxiety. Vital signs reviewed and stable. General: Nontoxic, no distress and appears stated age. Derm: Skin warm and dry, normal coloration for ethnicity. Head: Atraumatic, normocephalic and symmetric. Eyes: EOM's intact, no lid lag, and anicteric sclera Mouth: no lip lesions, mucus membranes moist Cardiovascular: regular rate and rhythm with normal S1S2, no murmur, positive po sterior tibial pulses bilaterally, and cap refill < 2 seconds. Lungs: Respirations even, regular, and unlabored on room air. Lungs CTA bilaterally, no rhonchi, no rales, no wheezing, and no accessory muscle usage. Abdominal: soft, nontender to palpation, no guarding, no appreciable organomegaly Ext: ROM intact. No gross muscle atrophy, no edema, no contractures Neuro: Speech clear, face symmetrical and CN II-XII grossly intact with no noted focal neuro deficits Psych: Alert and oriented to person, place, time, and situation. Appropriate and pleasant affect. Assessment and Plan of Care: Status post thoracic kyphoplasty with gagandeep/screw placement. Management per primary admitting orthospine surgery team including DVT prophylaxis, pain management, wound/dressing management, and PT/OT. Continue MiraLAX 17 g nightly to prevent opioid-induced/postsurgical constipation. DVT prophylaxis currently with SHANNEN monge and Anamaria. Hypertension Hypothyroidism Seizure disorder Cannabinoid use disorder Patient reports she has been taken off of all of her medications at home years ago. TSH is elevated at 11.500 with a normal free T4 of 1.15. Recommend repeat thyroid panel in 6 weeks and outpatient follow-up with her PCP. Patient has documented history of hypertension but blood pressures currently soft at 101/60 with heart rate of 83. Will continue to monitor. Recommend cessation of marijuana. Data and imaging reviewed: Vital signs reviewed. Blood pressure 133/90, heart rate 101, respiratory rate 18, temp 99.6 F, and SpO2 of 96% on room air. Labs completed and reviewed. CBC showing normocytic anemia with hemoglobin 11.8. BMP unremarkable. Blood glucose 106. Calcium 8.8 Thank you for allowing us to participate in the care of this pleasant patient. Do not hesitate to contact us with questions. Someone can be reached from the [facility] hospitalist group all hours of the day at [phone] or via [employer]. Patient was seen independently by Nurse Pracitioner. This document was prepared using [employer] dictation software. Please allow for errors in chemical processing technician, while rare they do occur. Primitivo Tatum NP rendered care for this patient independently, reviewed the findings and plan as documented in the note above and agree with plan. I did not physically speak with or examine the patient on this date. Objective - Vital Signs Vital signs: Vital Signs Temp 99.6 F 10/28/24 07:13 Pulse 101 H 10/28/24 07:13 Resp 18 10/28/24 07:13 BP 133/90 10/28/24 07:13 Pulse Ox 96 10/28/24 07:13 FiO2 Intake & Output 10/27/24 10/28/24 10/28/24 18:59 06:59 18:59 Other: Voiding Method Indwelling Catheter Toilet Toilet # Voids 1 1 - Labs CBC & Chem 7: 10/28/24 03:17 10/28/24 03:17 Labs: Abnormal Lab Results - Last 24 Hours (Table) 10/28/24 Range/Units 03:17 RBC 3.95 L (4.10-5.20) X 10*6/uL Hgb 11.8 L (12.0-15.0) g/dL Hct 37.1 L (37.2-46.3) % MCHC 31.8 L (32.0-37.0) g/dL RDW 15.4 H (11.5-14.5) %
[2024-10-29 02:34] VITALS: TEMP 97.7
[2024-10-29 08:08] VITALS: BP 152/90; PULSE 73; RESP 18
--- NOTE | 2024-10-29 09:40 | P.PN ---
Subjective Progress Note Date: 10/29/24 Principal diagnosis: T7 burst fracture Patient is evaluated at bedside, she is resting comfortably in her hospital bed. Patient feels that the pain is better and she continues to improve with regards to her ambulation status. Patient has been urinating well since surgery, she denies bowel movement at this time. Patient denies headaches, lightheadedness, chest pain or shortness of breath Objective - Vital Signs Vital signs: Vital Signs Temp 97.7 F 10/29/24 07:26 Pulse 73 10/29/24 07:26 Resp 18 10/29/24 07:26 BP 152/90 10/29/24 07:26 Pulse Ox 98 10/29/24 07:26 FiO2 Intake & Output 10/28/24 10/29/24 10/29/24 18:59 06:59 18:59 Other: Voiding Method Toilet Toilet # Voids 3 - Exam General Orthopedic exam: Postop bandages in good position of the mid thoracic spine Patient demonstrates mild tenderness with palpation surrounding incision site Full range of motion all major muscle groups of the bilateral upper and lower extremities, no focal deficits Patient demonstrates adequate strength with all major muscle groups of the bilateral upper and lower extremities Sensation to light touch is intact throughout the bilateral upper and lower extremities Patient demonstrates no pathological reflexes to the bilateral upper and lower extremity - Labs CBC & Chem 7: 10/28/24 03:17 10/28/24 03:17 Assessment and Plan Assessment: Postoperative day #3 status post T6-T8 posterior lateral instrumented fusion, open fracture treatment T7 Plan: Pain control, patient will be discharged home on oral medications DVT prophylaxis, continues to the aspirin during hospital stay along with SHANNEN hose and compression stockings Wound care instructions were discussed, this to include bandage instructions and showering instructions Weight-bear as tolerated with walker, no bending, lifting or twisting Medical recommendations appreciated Discharge planning: Patient stable for discharge home today Time with Patient: Less than 30
--- NOTE | 2024-10-29 09:43 | P.DS ---
Providers Date of admission: 10/26/24 12:13 Expected date of discharge: 10/29/24 Attending physician: Sedrick Vaughn DO Consults: 10/26/24 17:29 Consult Physician Routine Consulting Provider: Yennifer Huntley Consult Reason/Comments: Medical Management s/p T6-T8 ORIF T7 kyphoplasty Do you want consulting provider notified?: Yes Primary care physician: Stated None Hospital Course: Date of admission: 10/26/2024 Date of discharge: 10/29/2024 Admission diagnosis: T7 burst fracture, kyphosis Discharge diagnosis: Status post T6-T8 posterolateral instrumented fusion, open fracture treatment of T7 Attending physician: Dr. Vaughn Surgical procedures: T6/T8 posterolateral instrumented fusion, open fracture treatment T7 Brief history: Patient is a 74-year-old female with a history of a burst fracture to the T7 vertebral body. At this point patient has failed conservative treatment measures and has opted to proceed with a elective T6/T8 posterolateral instrumented fusion, open fracture treatment of T7. Hospital course: Details of patient's surgery can be found in operative report. Patient tolerated the procedure well and was subsequently transported to orthope dic floor. Patient's orthopeidc and medical care was provided daily. Patient had daily laboratory tests performed for evaluation of overall blood counts. Patient had daily physical therapy to include strengthening range of motion as well as education with walker ambulation. Patient was treated with aspirin for their postoperative DVT prophylaxis during their inpatient stay. Patient was noted to have a relatively uneventful postoperative course. Patient reported satisfactory pain control with oral pain medications by postoperative day 1. Patient showed satisfactory progress with physical therapy. Patient moved steadily through the program and had no difficulty meeting the goals by postoperative day 3. Given patient's otherwise satisfactory course and having met physical therapy goals, plan is to discharge patient [home] on postoperative day 3. Discharge condition/disposition: Patient will be discharged [home] in stable condition. Discharge medications: Instructions are given on resumption of patient's normal daily medications per primary care recommendation, in addition patient will be prescribed [place] 10 mg / 325 mg, Flexeril 5 mg, Duricef 500 mg, MiraLAX 17 g, Naproxen 500mg. Spine Discharge and Recovery Instructions Medications: See medication list All medication refills should be obtained through your primary care doctor or your clinic spine surgeon. Please discuss prescription refills at your follow up appointment. Do not call the hospital for medication refills. Dressing: Leave your dressing in place for a total of 5 days post operatively. Then you may remove your dressing and leave open to air. Keep the area clean and if not able to keep area clean, then cover with sterile gauze and tape. Showering: You may shower 3 days after your procedure allowing soap and water to run over incision. Do not scrub. Do not soak. Blot dry. Follow up: Please confirm a follow up appointment with your surgeon 3 weeks post operatively. Please make an appointment to follow up with your PCP in 1-2 weeks after surgery for evaluation '3 phase, 3-week plan' POST OP WEEKS 1-3 1. Lifting/carrying/pushing/pulling limited to less than 5 pounds. 2. Do not sit for longer than 15 minutes at one time. Get up and walk around. Prolonged sitting is NOT advised. If you lay down, see if you can tolerate laying down on you front (belly side) 3. Walk for periods of 15 minutes = 1 mile but no longer; do it multiple times times each day. 4. Ice your low back after activity. POST OP WEEKS 3-6 1. Lifting limited to less than 20 pounds. 2. Do not sit for longer than 30 minutes at a time. Frequently change positions. Use a sit-to stand workstation or take frequent breaks from sitting if you have returned to work. 3. Walk for 30 minutes each day. If possible, do these three or more times a day POST OP WEEKS 6+ At your 6-week appointment we will give you a physical therapy referral to focus on a core stabilization and strengthening program. You should also work on leg & buttock strengthening, hamstring & quadriceps stretching, and continue a low impact aerobic activity program such as swimming, walking, or riding a stationary bicycle. During the initial 6 weeks after your surgery, you are at the highest risk of re-injuring your spine. You should generally avoid BLT's (bending, lifting and twisting combination motions) and follow the above guidelines to reduce the chance of reinjury. You can anticipate post op appointments in our office at approximately 3 weeks and 6 weeks after your surgery. INCISION CARE: If your incision is not draining you do NOT need to cover it with a dressing. Keep your incision clean, dry and intact. In most cases, we apply skin glue, selvin or sutures to the incision at the time of surgery. This will be like a crust or have the appearance of a scab and will fall off in time on its own. The stitches or selvin need to be removed at 3 weeks post op appointment. You may begin to shower 3 days after surgery (this allows the glue to [place] well). However, please avoid scrubbing the incision site or peeling off any of the skin glue. This will ensure optimal healing of your incision. Also, during this time avoid soaking the incision area in water - this includes swimming pools, hot tubs or baths. No ointments, lotions or oils on the incision until your surgeon allows. Leave selvin, sutures or glue in place. Neurological dysfunction that comes on suddenly can also be a sign of a stroke. Below some common symptoms of a stroke are listed: B - balance difficulty such as sudden onset walking or leaning to one side - NEW E - eye problem such as sudden double vision or trouble seeing on one side - NEW F - Facial weakness or numbness on one side - NEW A - Arm or leg weakness or numbness on one side - NEW S - Slurred speech or difficulty with word finding - NEW T - Time is BRAIN! Call 911 as soon as you recognize these symptoms Diet: Consume a regular diet rich in vegetables and lean protein such as chicken or fish. You should consume in a ratio of approximately 20% fats|40% carbohydrates|40%protein. Vegetables, sweet potatoes, brown rice or quinoa are examples of good carbohydrates. Chips, white bread, cookies and sweets/sugar are examples of bad carbohydrates. Limit your bad carbs, go wild with good carbs. "Life's Simple 7" Guidelines as per [place] [employer] These will help you reclaim your life after surgery and leaf conditioner helper in your recovery, keeping in mind your restrictions. (1) Get Active. Physical activity can help people lose weight, control high blood pressure and cholesterol, feel emotionally better, and sleep better. (2) Control Cholesterol. Avoid a diet high in saturated fat, trans fat, & cholesterol. Limit whole milk & cream, ice cream, butter, egg yolks, processed meats (like sausage and hot dogs), and fatty meats. Choose healthy foods that are low in saturated fat, trans fat and cholesterol which include: Fruits and vegetables, fiber rich grain products (like whole grain pasta and brown rice), lean meat such as chicken, fish, nuts, seeds, and legumes. (3) Eat Better. Eat small portions. Shop at the grocery with a list and do not stray from it. Tips for a healthy diet include: Limit sodium intake to less than 1500mg daily, avoid prepackaged, processed, and fast foods, choose a diet rich in fruits, vegetables, and whole grain, high fiber foods, and limit saturated & cholesterol in your diet. (4) Manage Blood Pressure. If you have high blood pressure, you should have a cuff at home so that you can check your blood pressure regularly. Be sure you have a good cuff. An arm one is generally better than a wrist one. Bring the cuff to a doctor's appointment to validate that the measurements that your cuff are taking are accurate. Take your blood pressure twice daily when you are sitting down and relaxing. Record the numbers in a log and bring this log with you to your doctors' appointments. (5) Lose Weight if your BMI is above 25. A healthy BMI is between 19-25. To calculate Your BMI, you may use a Standard BMI Calculator on the NIH BMI website: <www.nhlbi.nih.gov/guidelines/obesity/BMI/bmicalc.htm>. Weigh oneself daily. If you are overweight, set a goal to lose weight. A pound a week loss if needed is a good target. (6) Reduce Blood Sugar. Limit foods and liquids with "added sugars." (Added sugars include sucrose, fructose, glucose, maltose, dextrose, high fructose corn syrup, corn syrup, concentrated fruit juice and honey). (7) Stop Smoking. If you smoke, quitting smoking is one of the best things that you can do for your health. Smoking increases your risk of heart attack, stroke, and peripheral vascular disease, which is a build-up of plaque in your arteries. Please discard all the cigarettes and lighters in your house. Have a plan for what you will do when you have the urge to smoke. Direct and second- hand smoke shortens your life as well as the lives of your family, friends and others around you. For your health and the health of those around you, please consider quitting! Proper Bending Body Mechanics: Maintain a wide stance with one foot slightly in front of the other. Keep your back straight. Bend utilizing the strength in your hips and knees. Do not bend at the waist. Maintain the lifted object at your waist-level close to your body. Avoid lifting weight that causes immediately pain or pain anywhere in the body afterwards. Smoking/Nicotine If there was ever one thing that you could do to increase your overall health, decrease your risk of cardiovascular problems by about 39% the second you make the choice, it is to STOP SMOKING. Your body's most instant gratification is the second you stop smoking. We have all heard the studies, read the articles but it is true, smoking is extremely bad for your overall health, and moreover it is detrimental to your bone health. Nicotine, IN ANY FORM, kills bone cells, prevents your body from healing fractures, and significantly prolongs healing after surgery. In spine surgery specifically, it increases your risk of not healing your bones to create a fusion and increases your risk of having a revision surgery due to this up to 60%. I know it is hard. I know it feels impossible. But there are ways. Take control of your life. We are here to help you through it. And when you are ready, ask us and we can direct you to help if you desire. Use the START Plan to Quit Smoking (please visit the [employer]org website listed below for more information): S = Set a quit date. Choose a date within the next 2 weeks, so you have enough time to prepare without losing your motivation to quit. If you mainly smoke at work, quit on the weekend, so you have a few days to adjust to the change. T = Tell family, friends, and co-workers that you plan to quit. Let your friends and family in on your plan to quit smoking and tell them you need their support and encouragement to stop. Look for a quit adrianne who wants to stop smoking as well. You can help each other get through the rough times. A = Anticipate and plan for the challenges you'll face while quitting. Most people who begin smoking again do so within the first 3 months. You can help yourself make it through by preparing ahead for common challenges, such as nicotine withdrawal and cigarette cravings. R = Remove cigarettes and other tobacco products from your home, car, and work. Throw away all your cigarettes (no emergency pack!), lighters, ashtrays, and matches. Wash your clothes and freshen up anything that smells like smoke. Shampoo your car, clean your drapes and carpet, and steam your furniture. T = Talk to your doctor about getting help to quit. Your doctor can prescribe medication to help with withdrawal and suggest other alternatives. If you can't see a doctor, you can get many products over the counter at your local pharmacy or grocery store, including the nicotine patch, nicotine lozenges, and nicotine gum. Resources for Quitting Smoking: <https://www.[place] .gov/documents/[facility]/Quit_Tobacco_Resources_for_patients_313480_7.pdf> Supplementation: Take recommended dosages of Vitamin D and Calcium to help fortify your bones and help them to heal. See your health maintenance packet for dosages and recommended levels. DVT/VTE prophylaxis: You will be given compression stockings from the hospital. Wear these daily for the first two weeks after surgery. You may take them off at night. You may be prescribed a medication to help thin your blood. Take this as directed. If you are not prescribed this medication, early and frequent ambulation has been shown to be the best prophylaxis to deep vein thrombosis and sequelae related to this event. Procedures: T6-T8 posterior lateral instrumented fusion, open fracture treatment of T7 burst fracture Patient Condition at Discharge: Good Plan - Discharge Summary Discharge Rx Participant: Yes New Discharge Prescriptions: New HYDROcodone/APAP 10-325MG [[place] 10-325] 1 tab PO Q4-6H PRN #40 tab PRN Reason: Pain polyethylene glycoL 3350 [Miralax] 17 gm PO HS 30 Days #30 packet cefaDROXiL [Duricef] 500 mg PO Q12HR #10 cap Cyclobenzaprine [Flexeril] 5 mg PO TID PRN #40 tablet PRN Reason: Muscle Spasm Naproxen [Naprosyn] 500 mg PO BID #28 tablet Continue Calcium Carbonate [Calcium] 600 mg PO DAILY Multivitamins, Thera [Multivitamin (formulary)] 1 tab PO DAILY Acetaminophen [Tylenol] 325 - 650 mg PO Q4-6H PRN PRN Reason: Pain Discharge Medication List Calcium Carbonate [Calcium] 600 mg PO DAILY 09/05/17 [History] Acetaminophen [Tylenol] 325 - 650 mg PO Q4-6H PRN 10/21/24 [History] Multivitamins, Thera [Multivitamin (formulary)] 1 tab PO DAILY 10/21/24 [History] Cyclobenzaprine [Flexeril] 5 mg PO TID PRN #40 tablet 10/28/24 [Rx] HYDROcodone/APAP 10-325MG [[place] 10-325] 1 tab PO Q4-6H PRN #40 tab 10/28/24 [Rx] Naproxen [Naprosyn] 500 mg PO BID #28 tablet 10/28/24 [Rx] cefaDROXiL [Duricef] 500 mg PO Q12HR #10 cap 10/28/24 [Rx] polyethylene glycoL 3350 [Miralax] 17 gm PO HS 30 Days #30 packet 10/28/24 [Rx] Follow up Appointment(s)/Referral(s): Danilo Ward DO [REFERRING] - 1 Week (Please call and schedule first available appointment to establish care with a local PCP as you will also need repeat thyroid function testing completed.) Sedrick Vaughn DO [Doctor of Osteopathic Medicine] - 2 Weeks [facility] Visiting Nurse, [NON-STAFF] - As Needed Activity/Diet/Wound Care/Special Instructions: Your TSH was elevated but your free T4 was within normal limits. Recommending repeat thyroid function tests in 6 weeks as surgery/illness can also alter these results. This past can be ordered and completed by your primary care provider. Spine Discharge and Recovery Instructions Date of Surgery: 10/26/2024 Diagnosis: T7 vertebral compression fracture Procedure: OPEN TREATMENT T7 FRACTURE WITH T6-8 STABILIZATION AND T7 AUGMENTATION Medications: See medication list All medication refills should be obtained through your primary care doctor or your clinic spine surgeon. Please discuss prescription refills at your follow up appointment. Do not call the hospital for medication refills. Dressing: Leave your dressing in place for a total of 5 days post operatively. Then you may remove your dressing and leave open to air. Keep the area clean and if not able to keep area clean, then cover with sterile gauze and tape. Showering: You may shower 3 days after your procedure allowing soap and water to run over incision. Do not scrub. Do not soak. Blot dry. Follow up: Please confirm a follow up appointment with your surgeon 3 weeks post operatively. Please make an appointment to follow up with your PCP in 1-2 weeks after surgery for evaluation '3 phase, 3-week plan' POST OP WEEKS 1-3 1. Lifting/carrying/pushing/pulling limited to less than 5 pounds. 2. Do not sit for longer than 15 minutes at one time. Get up and walk around. Prolonged sitting is NOT advised. If you lay down, see if you can tolerate laying down on you front (belly side) 3. Walk for periods of 15 minutes = 1 mile but no longer; do it multiple times times each day. 4. Ice your low back after activity. POST OP WEEKS 3-6 1. Lifting limited to less than 20 pounds. 2. Do not sit for longer than 30 minutes at a time. Frequently change positions. Use a sit-to stand workstation or take frequent breaks from sitting if you have returned to work. 3. Walk for 30 minutes each day. If possible, do these three or more times a day POST OP WEEKS 6+ At your 6-week appointment we will give you a physical therapy referral to focus on a core stabilization and strengthening program. You should also work on leg & buttock strengthening, hamstring & quadriceps stretching, and continue a low impact aerobic activity program such as swimming, walking, or riding a stationary bicycle. During the initial 6 weeks after your surgery, you are at the highest risk of re-injuring your spine. You should generally avoid BLT's (bending, lifting and twisting combination motions) and follow the above guidelines to reduce the chance of reinjury. You can anticipate post op appointments in our office at approximately 3 weeks and 6 weeks after your surgery. INCISION CARE: If your incision is not draining you do NOT need to cover it with a dressing. Keep your incision clean, dry and intact. In most cases, we apply skin glue, selvin or sutures to the incision at the time of surgery. This will be like a crust or have the appearance of a scab and will fall off in time on its own. The stitches or selvin need to be removed at 3 weeks post op appointment. You may begin to shower 3 days after surgery (this allows the glue to [place] well). However, please avoid scrubbing the incision site or peeling off any of the skin glue. This will ensure optimal healing of your incision. Also, during this time avoid soaking the incision area in water - this includes swimming pools, hot tubs or baths. No ointments, lotions or oils on the incision until your surgeon allows. Leave selvin, sutures or glue in place. Neurological dysfunction that comes on suddenly can also be a sign of a stroke. Below some common symptoms of a stroke are listed: B - balance difficulty such as sudden onset walking or leaning to one side - NEW E - eye problem such as sudden double vision or trouble seeing on one side - NEW F - Facial weakness or numbness on one side - NEW A - Arm or leg weakness or numbness on one side - NEW S - Slurred speech or difficulty with word finding - NEW T - Time is BRAIN! Call 911 as soon as you recognize these symptoms Diet: Consume a regular diet rich in vegetables and lean protein such as chicken or fish. You should consume in a ratio of approximately 20% fats|40% carbohydrates|40%protein. Vegetables, sweet potatoes, brown rice or quinoa are examples of good carbohydrates. Chips, white bread, cookies and sweets/sugar are examples of bad carbohydrates. Limit your bad carbs, go wild with good carbs. "Life's Simple 7" Guidelines as per [place] [employer] These will help you reclaim your life after surgery and leaf conditioner helper in your recovery, keeping in mind your restrictions. (1) Get Active. Physical activity can help people lose weight, control high blood pressure and cholesterol, feel emotionally better, and sleep better. (2) Control Cholesterol. Avoid a diet high in saturated fat, trans fat, & cholesterol. Limit whole milk & cream, ice cream, butter, egg yolks, processed meats (like sausage and hot dogs), and fatty meats. Choose healthy foods that are low in saturated fat, trans fat and cholesterol which include: Fruits and vegetables, fiber rich grain products (like whole grain pasta and brown rice), lean meat such as chicken, fish, nuts, seeds, and legumes. (3) Eat Better. Eat small portions. Shop at the grocery with a list and do not stray from it. Tips for a healthy diet include: Limit sodium intake to less than 1500mg daily, avoid prepackaged, processed, and fast foods, choose a diet rich in fruits, vegetables, and whole grain, high fiber foods, and limit saturated & cholesterol in your diet. (4) Manage Blood Pressure. If you have high blood pressure, you should have a cuff at home so that you can check your blood pressure regularly. Be sure you have a good cuff. An arm one is generally better than a wrist one. Bring the cuff to a doctor's appointment to validate that the measurements that your cuff are taking are accurate. Take your blood pressure twice daily when you are sitting down and relaxing. Record the numbers in a log and bring this log with you to your doctors' appointments. (5) Lose Weight if your BMI is above 25. A healthy BMI is between 19-25. To calculate Your BMI, you may use a Standard BMI Calculator on the NIH BMI website: <www.nhlbi.nih.gov/guidelines/obesity/BMI/bmicalc.htm>. Weigh oneself daily. If you are overweight, set a goal to lose weight. A pound a week loss if needed is a good target. (6) Reduce Blood Sugar. Limit foods and liquids with "added sugars." (Added sugars include sucrose, fructose, glucose, maltose, dextrose, high fructose corn syrup, corn syrup, concentrated fruit juice and honey). (7) Stop Smoking. If you smoke, quitting smoking is one of the best things that you can do for your health. Smoking increases your risk of heart attack, stroke, and peripheral vascular disease, which is a build-up of plaque in your arteries. Please discard all the cigarettes and lighters in your house. Have a plan for what you will do when you have the urge to smoke. Direct and second- hand smoke shortens your life as well as the lives of your family, friends and others around you. For your health and the health of those around you, please consider quitting! Proper Bending Body Mechanics: Maintain a wide stance with one foot slightly in front of the other. Keep your back straight. Bend utilizing the strength in your hips and knees. Do not bend at the waist. Maintain the lifted object at your waist-level close to your body. Avoid lifting weight that causes immediately pain or pain anywhere in the body afterwards. Smoking/Nicotine If there was ever one thing that you could do to increase your overall health, decrease your risk of cardiovascular problems by about 39% the second you make the choice, it is to STOP SMOKING. Your body's most instant gratification is the second you stop smoking. We have all heard the studies, read the articles but it is true, smoking is extremely bad for your overall health, and moreover it is detrimental to your bone health. Nicotine, IN ANY FORM, kills bone cells, prevents your body from healing fractures, and significantly prolongs healing after surgery. In spine surgery specifically, it increases your risk of not healing your bones to create a fusion and increases your risk of having a revision surgery due to this up to 60%. I know it is hard. I know it feels impossible. But there are ways. Take control of your life. We are here to help you through it. And when you are ready, ask us and we can direct you to help if you desire. Use the START Plan to Quit Smoking (please visit the Help[employer].org website listed below for more information): S = Set a quit date. Choose a date within the next 2 weeks, so you have enough time to prepare without losing your motivation to quit. If you mainly smoke at work, quit on the weekend, so you have a few days to adjust to the change. T = Tell family, friends, and co-workers that you plan to quit. Let your friends and family in on your plan to quit smoking and tell them you need their support and encouragement to stop. Look for a quit adrianne who wants to stop smoking as well. You can help each other get through the rough times. A = Anticipate and plan for the challenges you'll face while quitting. Most people who begin smoking again do so within the first 3 months. You can help yourself make it through by preparing ahead for common challenges, such as nicotine withdrawal and cigarette cravings. R = Remove cigarettes and other tobacco products from your home, car, and work. Throw away all your cigarettes (no emergency pack!), lighters, ashtrays, and matches. Wash your clothes and freshen up anything that smells like smoke. Shampoo your car, clean your drapes and carpet, and steam your furniture. T = Talk to your doctor about getting help to quit. Your doctor can prescribe medication to help with withdrawal and suggest other alternatives. If you can't see a doctor, you can get many products over the counter at your local pharmacy or grocery store, including the nicotine patch, nicotine lozenges, and nicotine gum. Resources for Quitting Smoking: <https://www.[place].gov/documents/[facility]/Quit_Tobacco_Resources_for_patients_313 480_7.pdf> Supplementation: Take recommended dosages of Vitamin D and Calcium to help fortify your bones and help them to heal. See your health maintenance packet for dosages and recommended levels. DVT/VTE prophylaxis: You will be given compression stockings from the hospital. Wear these daily for the first two weeks after surgery. You may take them off at night. You may be prescribed a medication to help thin your blood. Take this as directed. If you are not prescribed this medication, early and frequent ambulation has been shown to be the best prophylaxis to deep vein thrombosis and sequelae related to this event. Discharge Disposition: HOME WITH HOME HEALTH SERVICES
--- NOTE | 2024-10-29 12:17 | P.PN ---
Subjective Progress Note Date: 10/29/24 Hospital course: Patient is a very pleasant 74-year-old female with a past medical history of hypothyroidism, hypertension, seizure disorder, regular cannabinoid use, and recent fall 05/17/2024 that resulted in thoracic fractures at T6-T7.. She is currently admitted under orthospine surgery team status post kyphoplasty with stabilization rods and screws at T6-T8. Surgical procedure was completed on 10/10. We were then consulted for medical management throughout hospitalization. Physical exam: Patient seen and fully evaluated at bedside this morning. She was resting in bed. Patient reports she was worried that we were not going to let her go home today and states she felt a little anxious. Patient reports feeling much better since realizing she gets to go home today and denies having any questions, needs, concerns, or complaints. Discussed with patient that it is strongly recommended that she call and schedule appointment with Dr. Stanton to establish care by a PCP. Recommended she take her blood pressure at home and monitoring closely twice daily and a daily log to bring with her to this follow- up appointment. Also discussed with patient that her TSH was elevated and her f ree T4 was within normal limits and that she will need repeat thyroid function testing in 6 weeks Vital signs reviewed and stable. General: Nontoxic, no distress and appears stated age. Derm: Skin warm and dry, normal coloration for ethnicity. Head: Atraumatic, normocephalic and symmetric. Eyes: EOM's intact, no lid lag, and anicteric sclera Mouth: no lip lesions, mucus membranes moist Cardiovascular: regular rate and rhythm with normal S1S2, no murmur, positive posterior tibial pulses bilaterally, and cap refill < 2 seconds. Lungs: Respirations even, regular, and unlabored on room air. Lungs CTA bilaterally, no rhonchi, no rales, no wheezing, and no accessory muscle usage. Abdominal: soft, nontender to palpation, no guarding, no appreciable organomegaly Ext: ROM intact. No gross muscle atrophy, no edema, no contractures Neuro: Speech clear, face symmetrical and CN II-XII grossly intact with no noted focal neuro deficits Psych: Alert and oriented to person, place, time, and situation. Appropriate and pleasant affect. Assessment and Plan of Care: Status post thoracic kyphoplasty with gagandeep/screw placement. Management per primary admitting orthospine surgery team including DVT prophylaxis, pain management, wound/dressing management, and PT/OT. Continue MiraLAX 17 g nightly to prevent opioid-induced/postsurgical constipation. DVT prophylaxis currently with SHANNEN monge and Anamaria. Hypertension Hypothyroidism Seizure disorder Cannabinoid use disorder Patient reports she has been taken off of all of her medications at home years ago. TSH is elevated at 11.500 with a normal free T4 of 1.15. Recommend repeat thyroid panel in 6 weeks and outpatient follow-up with her PCP. Patient has documented history of hypertension but blood pressures currently soft at 101/60 with heart rate of 83. Will continue to monitor. Recommend cessation of marijuana. Data and imaging reviewed: Vital signs reviewed. Blood pressure slightly elevated this morning at 152/90 with heart rate of 73, respiratory rate 18, temp 97.7 F, and SpO2 of 98% on room air. Patient reports she was worried that we were not going to let her go home and states she felt a little anxious. Patient reports feeling much better since realizing she gets to go home today. Labs reviewed. CBC showing normocytic anemia with hemoglobin 11.8. BMP unremarkable. Blood glucose 106. Calcium 8.8 Patient is medically optimized for discharge once cleared by primary admitting orthopedic surgery team. Thank you for allowing us to participate in the care of this pleasant patient. Do not hesitate to contact us with questions. Someone can be reached from the [facility] hospitalist group all hours of the day at [phone] or via [email or web address]. Patient was seen independently by Nurse Pracitioner. This document was prepared using [employer] dictation software. Please allow for errors in diesel motor mechanic, while rare they do occur. Primitivo Tatum NP rendered care for this patient independently, reviewed the findings and plan as documented in the note above and agree with plan. I did not physically speak with or examine the patient on this date. Objective - Vital Signs Vital signs: Vital Signs Temp 97.7 F 10/29/24 07:26 Pulse 73 10/29/24 07:26 Resp 18 10/29/24 07:26 BP 152/90 10/29/24 07:26 Pulse Ox 98 10/29/24 07:26 FiO2 Intake & Output 10/28/24 10/29/24 10/29/24 18:59 06:59 18:59 Other: Voiding Method Toilet Toilet # Voids 3 - Labs CBC & Chem 7: 06/19/25 03:17 10/28/24 03:17
== END 2024-10-29 12:02 | disposition home health service (06) | DRG 448 ==
LOC: 2ORMAIN 12:13 → 4SSUR 17:22
PROVIDERS: ADMIT Orthopaedic Surgery; ATTEND Orthopaedic Surgery
PROC: XNU4356 Supplement Thoracic Vertebra with Mechanically Expandable (Paired) Synthetic Substitute, Percutaneous Approach, New Technology Group 6 (ICD-10-PCS; 2024-10-26)
PROC: 8E0WXBZ Computer Assisted Procedure of Trunk Region (ICD-10-PCS; 2024-10-26)
PROC: 0RG70K1 Fusion of 2 to 7 Thoracic Vertebral Joints with Nonautologous Tissue Substitute, Posterior Approach, Posterior Column, Open Approach (ICD-10-PCS; principal; 2024-10-26 14:00)
PROC: 0PS404Z Reposition Thoracic Vertebra with Internal Fixation Device, Open Approach (ICD-10-PCS; 2024-10-26 14:00)
DX: S22.061A Stable burst fracture of T7-T8 vertebra, initial encounter for closed fracture (principal); G89.21 Chronic pain due to trauma; M40.204 Unspecified kyphosis, thoracic region; R53.81 Other malaise; R26.9 Unspecified abnormalities of gait and mobility; W10.9XXA Fall (on) (from) unspecified stairs and steps, initial encounter
CPT/HCPCS: 72070; 72128; 80048; 84439; 84443; 85025; 85027; 88307; 88311